=== PATIENT | male | born 1960 | race African-American/Black ===

== ENCOUNTER 2025-05-17 16:15 | Inpatient (IN) | payer MEDICARE, MEDICAID ==
[~2025-05-17] VITALS: Ht 167.6 cm; Wt 54.9 kg
[2025-05-17 16:18] VITALS: O2SAT 97
[2025-05-17 17:04] LABS: BASOPHILS % 0.8 % (0.0-2.0); EOSINOPHILS % 3.3 % (0.0-5.0); HEMATOCRIT. 37.3 % (42.0-52.0); HEMOGLOBIN. 12.2 g/dL (14.0-18.0); LYMPHOCYTES % 22.8 % (20.0-50.0); MEAN PLATELET VOLUME 8.2 fl (7.4-10.4); MONOCYTES % 11.4 % (2.0-8.0); NEUTROPHILS % 61.7 % (40.0-76.0); PLATELET 308 x1000/uL (130-400); RED BLOOD CELL COUNT 4.06 mill/uL (4.7-6.1); RED CELL DISTRIBUTION WIDTH 14.5 % (11.6-14.6)
[2025-05-17 17:22] LABS: CREATININE 0.8 mg/dL (0.6-1.3)
[2025-05-17 17:23] LABS: TROPONIN I HIGH SENSITIVITY 19 ng/L (3.0-53); UREA NITROGEN BLOOD 8 mg/dL (9-23)
[2025-05-17 17:24] LABS: ASPARTATE AMINOTRANSFERASE 96 IU/L (<34); BILIRUBIN DIRECT 0.2 mg/dL (<=3.0)
[2025-05-17 17:25] LABS: BILIRUBIN TOTAL 0.5 mg/dL (0.1-1.0); PROTEIN TOTAL 6.1 g/dL (6.0-8.3)
[2025-05-17 17:26] LABS: T4 FREE 1.17 ng/dL (0.89-1.76)
[2025-05-17 19:01] LABS: INFLUENZA TYPE A Presumptive Negative (Pres. Neg.)
[2025-05-17 19:02] LABS: INFLUENZA TYPE B Presumptive Negative (Pres. Neg.)
[2025-05-17 19:03] LABS: RESPIRATORY SYNCYTIAL VIRUS Not Detected (Not Detectd)
[2025-05-17 22:21] LABS: TROPONIN I HIGH SENSITIVITY 19 ng/L (3.0-53)
[2025-05-17] MEDS ORDERED: LORAZEPAM 0.5MG TABLET PO PRN (22:30)
[2025-05-17] MEDS ORDERED: IPRATROPIUM/ALBUTEROL 0.5-3(2.5)MG/3ML NEB HHN PRN (22:30)
[2025-05-17] MEDS ORDERED: ACETAMINOPHEN 325MG TABLET PO PRN (22:30)
[2025-05-17] MEDS ORDERED: ONDANSETRON HCL 4MG/2ML INJ IV PRN (22:30)
[2025-05-17] MEDS ORDERED: GUAIFENESIN 200MG/10ML SUGAR FREE UDC PO PRN (22:30)
[2025-05-17] MEDS ORDERED: CLONIDINE 0.1MG TABLET PO PRN (22:30)
[2025-05-18 01:36] VITALS: BP 137/83; PULSE 69; RESP 19; TEMP 36.7516
[2025-05-18 04:13] LABS: CLARITY URINE CLEAR (CLEAR); COLOR URINE DARK YELLOW (YELLOW); GLUCOSE URINE NEGATIVE (NEGATIVE); KETONES URINE 1+ (NEGATIVE); LEUKOCYTE ESTERASE URINE NEGATIVE (NEGATIVE); NITRITE URINE NEGATIVE (NEGATIVE); OCCULT BLOOD URINE NEGATIVE (NEGATIVE); PH URINE 5.5 (4.5-8.0); PROTEIN URINE 1+ (NEGATIVE); SPECIFIC GRAVITY URINE 1.023 (1.005-1.030); UROBILINOGEN URINE 2.0 E.U./dL (0.2-1.0)
[2025-05-18] MEDS ORDERED: MAGNESIUM 2 G PREMIX 50 ML IV SCH (05:00)
[2025-05-18 05:12] LABS: *AMPHETAMINES SCREEN URINE NEGATIVE (NEGATIVE)
[2025-05-18 05:13] LABS: *BARBITURATES SCREEN URINE NEGATIVE (NEGATIVE); *BENZODIAZEPINES SCREEN URINE NEGATIVE (NEGATIVE); *COCAINE SCREEN URINE NEGATIVE (NEGATIVE); CANNABINOID URINE SCREEN NEGATIVE (NEGATIVE); ECSTASY MDMA SCREEN URINE NEGATIVE (NEGATIVE); METHADONE URINE SCREEN NEGATIVE (NEGATIVE); OPIATES URINE SCREEN NEGATIVE (NEGATIVE); PHENCYCLIDINE URINE SCREEN NEGATIVE (NEGATIVE)
[2025-05-18] MEDS: FOLIC ACID 1 MG, THIAMINE HCL 100 MG, MVI, ADULT NO.1 10 ML in DEXTROSE 5% WATER 1,000 ML IV ONE (06:43)
[2025-05-18 07:19] LABS: SQUAMOUS EPITHELIAL CELL URINE FEW /lpf (RARE/1+)
[2025-05-18 07:21] LABS: BACTERIA URINE NONE SEEN; CALCIUM OXALATE CRYSTALS URINE 1+ /lpf; RBC URINE 0-2 /hpf (0-2); WBC URINE 0-2 /hpf (0-2)
[2025-05-18 08:00] VITALS: BP 135/76; PULSE 59; RESP 16; TEMP 36.5; O2SAT 99
[2025-05-18] MEDS: MAGNESIUM 2 G PREMIX 50 ML IV SCH ×2 (09:14→12:57)
[2025-05-18 09:19] LABS: PLATELET 291 x1000/uL (130-400); RED BLOOD CELL COUNT 4.05 mill/uL (4.7-6.1); RED CELL DISTRIBUTION WIDTH 14.2 % (11.6-14.6)
[2025-05-18 09:21] LABS: INR 1.1
[2025-05-18 09:36] LABS: FOLIC ACID (FOLATE) SERUM 9.96 ng/mL (>5.38)
[2025-05-18 09:37] LABS: VITAMIN B12 SERUM 589 pg/mL (211-911)
[2025-05-18 09:45] LABS: CREATININE 0.7 mg/dL (0.6-1.3)
[2025-05-18 09:46] LABS: LDL CHOLESTEROL 91 mg/dL (5-100); TRIGLYCERIDE 98 mg/dL (0-150); UREA NITROGEN BLOOD 9 mg/dL (9-23)
[2025-05-18 09:48] LABS: PHOSPHORUS 2.4 mg/dL (2.5-4.9)
[2025-05-18 12:00] VITALS: BP 121/73; PULSE 78; RESP 18; TEMP 36.6; O2SAT 100
[2025-05-18] MEDS: POTASSIUM PHOSPHATE 15 MMOL in DEXT 5% WATER 245 ML IV SCH (14:05)
[2025-05-18 16:00] VITALS: BP 98/61; PULSE 76; RESP 17; TEMP 36.7; O2SAT 99
[2025-05-18 20:00] VITALS: BP 122/81; PULSE 80; RESP 18; TEMP 36.6; O2SAT 98
[2025-05-18] MEDS: FAMOTIDINE 20MG TABLET PO SCH (20:11)
[2025-05-19] VITALS: BP 146/82; PULSE 62; RESP 18; TEMP 36.5; O2SAT 98
[2025-05-19 04:00] VITALS: BP 139/84; PULSE 63; RESP 18; TEMP 36.7; O2SAT 99
[2025-05-19 08:00] VITALS: BP 136/93; PULSE 86; RESP 18; TEMP 36.4; O2SAT 100
[2025-05-19 11:26] LABS: CREATININE 0.8 mg/dL (0.6-1.3)
[2025-05-19 11:27] LABS: UREA NITROGEN BLOOD 6 mg/dL (9-23)
[2025-05-19 11:29] LABS: PHOSPHORUS 2.9 mg/dL (2.5-4.9)
[2025-05-19 12:00] VITALS: PULSE 75; RESP 18; TEMP 36.3; O2SAT 96
[2025-05-19 16:00] VITALS: BP 128/78; PULSE 78; RESP 18; TEMP 36.4; O2SAT 99
[2025-05-19 20:00] VITALS: BP_SYST 100; BP_DIAS 64; BP_DIAS 67; PULSE 79; RESP 18; TEMP 36.4; O2SAT 99
[2025-05-20] VITALS: BP_SYST 126; BP_SYST 95; BP_DIAS 53; BP_DIAS 67; PULSE 107; PULSE 84; RESP 18; TEMP 36.4; O2SAT 93; O2SAT 99
[2025-05-20 04:00] VITALS: BP 125/73; PULSE 74; RESP 18; TEMP 36.4; O2SAT 89
[2025-05-20 08:00] VITALS: BP 140/92; PULSE 72; RESP 20; TEMP 36.3
[2025-05-20 12:00] VITALS: BP 145/88; PULSE 77; RESP 20; TEMP 36.4; O2SAT 100
[2025-05-20 13:09] LABS: CREATININE 0.8 mg/dL (0.6-1.3); UREA NITROGEN BLOOD 9 mg/dL (9-23)
[2025-05-20 13:11] LABS: ASPARTATE AMINOTRANSFERASE 37 IU/L (<34); BILIRUBIN DIRECT 0.1 mg/dL (<=3.0); BILIRUBIN TOTAL 0.3 mg/dL (0.1-1.0); PROTEIN TOTAL 6.7 g/dL (6.0-8.3)
[2025-05-20 16:00] VITALS: BP_SYST 123; BP_DIAS 83; BP_DIAS 88; PULSE 56; RESP 20; TEMP 36.4; O2SAT 98
[2025-05-20 20:00] VITALS: BP 143/84; PULSE 72; RESP 18; TEMP 36.7; O2SAT 100
[2025-05-21] VITALS: BP 119/82; PULSE 74; RESP 18; TEMP 36.7; O2SAT 100
[2025-05-21 04:00] VITALS: BP 130/85; PULSE 74; RESP 18; TEMP 37.2; O2SAT 99
[2025-05-21 08:00] VITALS: BP 105/71; PULSE 79; RESP 17; TEMP 36.4; O2SAT 97
[2025-05-21 12:00] VITALS: BP_SYST 139; BP_SYST 95; BP_DIAS 61; BP_DIAS 77; PULSE 77; RESP 17; TEMP 36.7; O2SAT 99
[2025-05-21 16:00] VITALS: BP 91/60; PULSE 83; RESP 17; TEMP 36.4; O2SAT 97
[2025-05-21 20:00] VITALS: BP 108/63; PULSE 72; RESP 18; TEMP 36.4; O2SAT 98
[2025-05-22] VITALS: BP 106/74; PULSE 72; RESP 18; TEMP 36.5; O2SAT 98
[2025-05-22 04:00] VITALS: BP 102/72; PULSE 81; RESP 18; TEMP 36.6; O2SAT 100
[2025-05-22 08:00] VITALS: BP 105/70; PULSE 67; RESP 17; TEMP 36.6; O2SAT 97
[2025-05-22] MEDS: MULTIVITAMINS,THER W-MINERALS TABLET PO SCH (08:43)
[2025-05-22 12:00] VITALS: BP 113/75; PULSE 82; RESP 17; TEMP 35.7; TEMP 36.3; O2SAT 98
[2025-05-22 16:00] VITALS: BP 95/69; PULSE 62; RESP 17; TEMP 37; O2SAT 100
[2025-05-22] MEDS: ACETAMINOPHEN 325MG TABLET PO PRN (19:59)
[2025-05-22 20:00] VITALS: BP 108/69; PULSE 66; RESP 18; TEMP 36.4; O2SAT 99
[2025-05-23] VITALS: BP 113/70; PULSE 72; RESP 20; TEMP 36.6; O2SAT 100
[2025-05-23 08:00] VITALS: BP 114/72; PULSE 86; RESP 18; TEMP 36.3; O2SAT 96
[2025-05-23 12:00] VITALS: BP 102/67; PULSE 80; RESP 18; TEMP 36.3; O2SAT 95
[2025-05-23 16:00] VITALS: BP 149/101; PULSE 74; RESP 20; TEMP 36.3; O2SAT 97
[2025-05-23 20:00] VITALS: BP 115/57; PULSE 90; RESP 18; TEMP 37.1; O2SAT 95
[2025-05-24] VITALS: BP 95/63; PULSE 92; RESP 18; TEMP 36.7; O2SAT 100
[2025-05-24 04:00] VITALS: BP 106/74; PULSE 83; RESP 18; TEMP 36.7; O2SAT 96
[2025-05-24 08:00] VITALS: BP 102/66; PULSE 85; RESP 18; TEMP 36.4; O2SAT 100
[2025-05-24 12:00] VITALS: BP 97/63; PULSE 102; RESP 20; TEMP 36; O2SAT 98
[2025-05-24 16:00] VITALS: BP 112/72; PULSE 81; RESP 20; TEMP 36.4; O2SAT 97
[2025-05-24 20:00] VITALS: BP 117/80; PULSE 77; RESP 18; TEMP 36.6; O2SAT 98
[2025-05-25] VITALS: BP 118/79; PULSE 77; RESP 18; TEMP 36.6; O2SAT 96
[2025-05-25 04:00] VITALS: BP 122/84; PULSE 93; RESP 18; TEMP 36.5; O2SAT 97
[2025-05-25 08:00] VITALS: BP 118/77; PULSE 76; RESP 16; TEMP 36.6; O2SAT 100
[2025-05-25 12:00] VITALS: BP 110/74; PULSE 70; RESP 16; TEMP 36.6; O2SAT 97
[2025-05-25 20:00] VITALS: BP 110/76; PULSE 98; RESP 18; TEMP 36.6; O2SAT 97
[2025-05-26] VITALS: BP 106/68; PULSE 70; RESP 18; TEMP 36.7; O2SAT 99
[2025-05-26 04:00] VITALS: BP 112/86; PULSE 68; RESP 18; TEMP 36.3; O2SAT 98
[2025-05-26 08:00] VITALS: BP 93/63; PULSE 76; RESP 16; TEMP 36.4; O2SAT 97
[2025-05-26 16:00] VITALS: BP 101/66; PULSE 71; RESP 17; TEMP 36.7; O2SAT 98
[2025-05-26 20:00] VITALS: BP 109/71; PULSE 75; RESP 18; TEMP 36.6; O2SAT 96
[2025-05-27] VITALS (7 sets, daily range): BP systolic 105–129; BP diastolic 67–82; PULSE 64–99; RESP 16–18; TEMP 36.3–37.2; O2SAT 100
[2025-05-28 04:00] VITALS: BP 91/63; PULSE 68; RESP 18; TEMP 36.3; O2SAT 100
[2025-05-28 08:00] VITALS: BP 100/65; PULSE 75; RESP 18; TEMP 36.4; O2SAT 100
[2025-05-28 12:00] VITALS: BP 95/64; RESP 18; TEMP 36.4; O2SAT 97
[2025-05-28 16:00] VITALS: BP 101/64; PULSE 80; RESP 18; TEMP 36.3; O2SAT 96
[2025-05-28 20:00] VITALS: BP 98/66; PULSE 58; RESP 20; TEMP 36.6; O2SAT 99
[2025-05-28 20:33] VITALS: BP 98/66; PULSE 77; RESP 18; TEMP 97.8
[2025-05-29 04:00] VITALS: BP 101/62; PULSE 72; RESP 17; TEMP 36.4; O2SAT 98
[2025-05-29 12:00] VITALS: BP 112/72; PULSE 70; RESP 18; TEMP 36.4; O2SAT 99
[2025-05-29 12:40] VITALS: BP 112/72; PULSE 70; RESP 18; TEMP 97.6
[2025-05-29 20:00] VITALS: BP 106/60; PULSE 75; RESP 18; TEMP 36.5; O2SAT 96
[2025-05-30] VITALS (7 sets, daily range): BP systolic 99–124; BP diastolic 59–82; PULSE 58–86; RESP 16–18; TEMP 34.7–36.7; O2SAT 95–99
[2025-05-31] VITALS: BP 122/78; PULSE 70; RESP 18; TEMP 36.4; O2SAT 99
[2025-05-31 08:00] VITALS: BP 120/78; PULSE 89; RESP 18; TEMP 36.3; O2SAT 98
[2025-05-31 12:00] VITALS: BP 120/82; PULSE 80; RESP 18; TEMP 36.7; O2SAT 98
[2025-05-31 12:38] VITALS: BP 120/82; PULSE 80; RESP 16; TEMP 98
== END 2025-05-31 13:56 | disposition home or self-care (01) | DRG 70 ==
LOC: ER 16:15 → 7EST 18:22 → ENRESERV 22:06
PROVIDERS: ADMIT Internal Medicine; ATTEND Internal Medicine
DX: G93.41 Metabolic encephalopathy (principal); L89.123 Pressure ulcer of left upper back, stage 3; L89.153 Pressure ulcer of sacral region, stage 3; L89.514 Pressure ulcer of right ankle, stage 4; L89.313 Pressure ulcer of right buttock, stage 3; E87.6 Hypokalemia; E83.42 Hypomagnesemia; D64.9 Anemia, unspecified; Z20.822 Contact with and (suspected) exposure to COVID-19; I10 Essential (primary) hypertension; J98.4 Other disorders of lung; R79.89 Other specified abnormal findings of blood chemistry; E83.51 Hypocalcemia; F41.9 Anxiety disorder, unspecified; S81.811A Laceration without foreign body, right lower leg, initial encounter; X58.XXXA Exposure to other specified factors, initial encounter; Y93.89 Activity, other specified; Y92.89 Other specified places as the place of occurrence of the external cause; Y99.8 Other external cause status
CPT/HCPCS: 36415; 71045; 80048; 80061; 80076; 80305; 80320; 81003; 82140; 82550; 82607; 82746; 83036; 83735; 83880; 84100; 84439; 84443; 84484; 85025; 85027; 85379; 87420; 87426; 87804; 93005; 97116; 97162; 97166; 97530; 99285; A4606; J3411; J3475; J3490; J7060; J7070; G0480